=== PATIENT | female | born 1990 | race American Indian/Alaskan Native ===

== ENCOUNTER 2017-09-28 06:28 | Inpatient (IN) | payer MEDICAID ==
[2017-09-28] MEDS ORDERED: PITOCin/NS 20 UNIT/1000ML DRIP 20,000 MILLIUNITS/1,000 ML BAG IV ONE (06:46)
[2017-09-28] MEDS ORDERED: PHENERGAN PO PRN (07:54)
[2017-09-28] MEDS ORDERED: TYLENOL PO PRN (07:54)
[2017-09-28] MEDS ORDERED: ZOFRAN IV PRN (07:54)
[2017-09-28] MEDS ORDERED: LANSINOH TP PRN (07:54)
[2017-09-28] MEDS ORDERED: PITOCin/NS 20 UNIT/1000ML DRIP 20 UNITS/1,000 ML BAG IV PRN (07:54)
[2017-09-28] MEDS ORDERED: METHERGINE IM PRN (07:54)
[2017-09-28] MEDS ORDERED: PHENERGAN PR PRN (07:54)
[2017-09-28] MEDS ORDERED: TUCKS PAD TP PRN (07:54)
[2017-09-28] MEDS ORDERED: HEMABATE IM PRN (07:54)
[2017-09-28] MEDS ORDERED: BENADRYL PO PRN (07:54)
[2017-09-28] MEDS ORDERED: CYTOTEC PR PRN (07:54)
[2017-09-28 07:58] LABS: Basophils # (Auto) 0.1 K/mm3 (0.0-0.1); Basophils % (Auto) 0.6 % (0.0-1.8); Eosinophils # (Auto) 0.1 K/mm3 (0.0-0.4); Eosinophils % (Auto) 0.7 % (0.0-4.3); Lymphocytes # (Auto) 1.5 K/mm3 (1.2-5.4); Lymphocytes % (Auto) 14.7 % (13.4-35.0); Mean Corpuscular HGB Conc 29 % (30-34); Monocytes # (Auto) 0.5 K/mm3 (0.0-0.8); Monocytes % (Auto) 4.6 % (0.0-7.3); Platelet Count 321 K/mm3 (140-440)
[2017-09-28 08:00] LABS: Hematocrit 24.5 % (30.3-42.9); Mean Corpuscular Hemoglobin 18 pg (28-32); Mean Corpuscular Volume 64 fl (79-97); Red Cell Distribution Width 21.1 % (13.2-15.2)
[2017-09-28] MEDS ORDERED: SODIUM CHLORIDE FLUSH SYRINGE 10 ML IV NR (08:00)
--- NOTE | 2017-09-28 08:05 | History and Physical Report ---
History of Present Illness Date of examination: 09/28/17 Date of admission: 09/28/17 06:46 Chief complaint: Labor History of present illness: No care Past History Past Medical History: no pertinent history Past Surgical History: no surgical history [employer] MANAGER History: denies: chlamydia, gonorrhea, hepatitis B, herpes, HIV, syphilis, trichomonas Social history: no significant social history - Obstetrical History : 4 Medications and Allergies Allergies Allergy/AdvReac Type Severity Reaction Status Date / Time No Known Allergies Allergy Unverified 09/28/17 07:02 Home Medications Medication Instructions Recorded Confirmed Last Taken Type No Known Home Medications [No 09/28/17 09/28/17 Unknown History Reported Home Medications] - Vital Signs Vital signs: Vital Signs Pulse Pulse Ox 103 H 98 09/28/17 07:02 09/28/17 07:02 Temp Pulse Resp BP Pulse Ox 97.3 F L 89 24 121/80 100 09/28/17 07:37 09/28/17 08:02 09/28/17 07:37 09/28/17 07:52 09/28/17 08:02 - Physical Exam Breasts: Positive: deferred Lungs: Positive: Normal air movement Abdomen: Positive: normal appearance Genitourinary (Female): Positive: normal external genitalia, normal perenium Vulva: both: normal Uterus: Positive: other (firm) Extremities: Positive: normal Results Result Diagrams: 09/28/17 06:09 Abnormal lab results 09/28/17 Range/Units 06:09 Hgb 7.0 L (10.1-14.3) gm/dl Hct 24.5 L (30.3-42.9) % MCV 64 L (79-97) fl MCH 18 L (28-32) pg MCHC 29 L (30-34) % RDW 21.1 H (13.2-15.2) % Seg Neutrophils % 79.4 H (40.0-70.0) % Seg Neutrophils # 8.3 H (1.8-7.7) K/mm3 All other labs normal. Assessment and Plan - Patient Problems (1) No care in current Current Visit: Yes Status: Acute (2) Anemia Current Visit: Yes Status: Acute Qualifiers: Anemia type: iron deficiency Iron deficiency anemia type: chronic blood loss Qualified Code(s): D50.0 - Iron deficiency anemia secondary to blood loss (chronic) Plan to address problem: Present on arrival (3) Vaginal delivery Current Visit: Yes Status: Acute (4) Single live Current Visit: Yes Status: Acute
--- NOTE | 2017-09-28 08:12 | Procedure Note ---
OB Delivery Note - Delivery Date of Delivery: 09/28/17 Estimated blood loss: 200cc - Vaginal Delivery presentation: vertex Intrapartum events: no care Delivery placenta: spontaneous (intact) Delivery comments: Patient states she had one visit to [facility] in [place] and her THEODORE is today. On my arrival baby on warmer, placenta delivered and in basin, appears intact. Small (B) labial abrasions, no lacerations. hemostasis noted. - Infant A at 1 minute: 8 at 5 minutes: 9 Infant Gender: Female (6#0oz)
[2017-09-28] MEDS: MOTRIN PO SCH ×3 (08:24→23:42)
[2017-09-28 08:44] LABS: Hepatitis C Virus Antibody Non-Reactive (NonReactive)
[2017-09-28 09:16] LABS: Rubella IgG Antibody Immune (Immune)
[2017-09-28 09:18] LABS: Bilirubin,Urine NEG (Negative); Blood,Urine LG (Negative); Mucus,Urine FEW /HPF; Urobilinogen,Urine < 2.0 mg/dL (<2.0)
[2017-09-28 09:20] LABS: Color,Urine Sl. Red (Yellow); RBC,Urine > 182.0 /HPF (0.0-6.0)
[2017-09-28 09:43] LABS: Amphetamine Screen,Urine PRESUMPTIVE NEGATIVE; Benzodiazepines Screen,Urine PRESUMPTIVE NEGATIVE; Cannabinoid Screen,Urine PRESUMPTIVE NEGATIVE; Cocaine Screen,Urine PRESUMPTIVE NEGATIVE; Methadone Screen,Urine PRESUMPTIVE NEGATIVE; Opiate Screen,Urine PRESUMPTIVE NEGATIVE
[2017-09-28] MEDS ORDERED: DULCOLAX PR PRN (10:00)
[2017-09-28] MEDS: FEOSOL PO SCH ×2 (16:42→21:52)
[2017-09-28 19:19] LABS: Hematocrit 20.2 % (30.3-42.9)
[2017-09-28 19:33] LABS: Hemoglobin 5.8 gm/dl (10.1-14.3)
[2017-09-28] MEDS ORDERED: NACL 0.9% 500 ML 500 ML IV SCH (21:20)
[2017-09-28] MEDS ORDERED: NACL 0.9% 500 ML 500 ML IV ONE (21:20)
[2017-09-28] MEDS ORDERED: MILK OF MAGNESIA PO PRN (22:00)
[2017-09-29] MEDS: MOTRIN PO SCH ×2 (06:01→12:00)
--- NOTE | 2017-09-29 06:21 | Progress Note ---
Assessment and Plan - Patient Problems (1) Vaginal delivery Onset Date: ~09/28/17 Current Visit: Yes Status: Acute Plan to address problem: Pt w/o complaint VSS FF below umb Lochia small Perineum intact H&H 11/09. Chronic anemia. Pt denies any s/sx of anemia Pt continues to decline transfusion. Stable s/p vag delivery P: continue pathway. Will write d/c for tomorrow so pt may leave in the AM as requested. LAR for BC Pt states she will f/u with practice in [facility]. Subjective - Subjective Date of service: 09/29/17 (Pt asks for d/c; explained d/c can be written for tomorrow) Principal diagnosis: No Care Patient reports: appetite normal, voiding normally, pain well controlled, ambulating normally : doing well Objective - Vital Signs Latest vital signs: Vital Signs Temp Pulse Resp BP BP Pulse Ox 09/29/17 00:15 98.1 F 97 H 18 106/61 09/28/17 21:10 98.9 F 102 H 18 121/67 09/28/17 17:15 98 F 107 H 18 122/67 09/28/17 08:42 97 H 100 09/28/17 08:37 93 H 128/83 100 09/28/17 08:32 91 H 100 09/28/17 08:27 99 H 99 09/28/17 08:24 20 09/28/17 08:22 94 H 128/83 99 09/28/17 08:17 97 H 100 09/28/17 08:12 95 H 100 09/28/17 08:07 98 H 123/83 100 09/28/17 08:02 89 100 09/28/17 07:57 91 H 100 09/28/17 07:52 84 18 121/80 121/80 100 09/28/17 07:47 91 H 100 09/28/17 07:42 95 H 99 09/28/17 07:37 97.3 F L 94 H 24 125/79 125/79 99 09/28/17 07:32 95 H 100 09/28/17 07:27 93 H 100 09/28/17 07:22 97 H 18 122/77 122/77 100 09/28/17 07:17 112 H 98 09/28/17 07:12 97.3 F L 105 H 18 123/70 98 09/28/17 07:11 107 H 123/70 09/28/17 07:07 104 H 99 09/28/17 07:04 102 H 123/67 09/28/17 07:02 103 H 98 Intake and Output 09/28/17 09/28/17 09/29/17 14:59 22:59 06:59 Intake Total 120 680 120 Output Total 200 1300 Balance -80 -620 120 Intake: Oral 120 560 Intake, Free Water 120 120 Output: Urine 200 1300 Void 200 1300 Other: Total, Intake Amount 120 240 Total, Output Amount 200 900 # Voids Void 2 Weight 170 lb Estimated Blood Loss 200 Patient Weight 09/29/17 06:59 Weight 170 lb - Exam Breasts: Present: normal Cardiovascular: Present: Regular rate Lungs: Present: Normal air movement Abdomen: Present: normal appearance, soft, normal bowel sounds Uterus: Present: normal, firm, fundal height below umbilicus Extremities: Present: normal Deep Tendon Reflex Grade: Normal +2 Incision: Present: normal, dry, intact - Labs Labs: Abnormal lab results 09/28/17 09/28/17 09/28/17 Range/Units 06:09 06:09 09:00 Hgb 7.0 L (10.1-14.3) gm/dl Hct 24.5 L (30.3-42.9) % MCV 64 L (79-97) fl MCH 18 L (28-32) pg MCHC 29 L (30-34) % RDW 21.1 H (13.2-15.2) % Seg Neutrophils % 79.4 H (40.0-70.0) % Seg Neutrophils # 8.3 H (1.8-7.7) K/mm3 Urine WBC (Auto) 7.0 H (0.0-6.0) /HPF Crossmatch See Detail 09/28/17 Range/Units 19:10 Hgb 5.8 L* (10.1-14.3) gm/dl Hct 20.2 L (30.3-42.9) % MCV (79-97) fl MCH (28-32) pg MCHC (30-34) % RDW (13.2-15.2) % Seg Neutrophils % (40.0-70.0) % Seg Neutrophils # (1.8-7.7) K/mm3 Urine WBC (Auto) (0.0-6.0) /HPF Crossmatch
--- NOTE | 2017-09-29 06:26 | Discharge Summary ---
Providers - Providers Date of Admission: 09/28/17 06:46 Date of discharge: 09/29/17 (pt request d/c when possible) Attending physician: LILIA QUINTANILLA 09/28/17 Consult to Case Management [CONS] Routine Services Needed at Discharge: Assessment Services Manager Additional Physician Instructions: No care Primary care physician: LILIA QUINTANILLA Hospitalization Reason for admission: active labor (No Care) Delivery: Episiotomy: none Laceration: none Incision: normal Other procedures: none complications: none Discharge diagnosis: IUP at term delivered [place] baby: female Hospital course: uncomplicated vaginal delivery Chronic anemia - declined blood transfusion Pt w/o complaints VSS FF below umb Lochia small Perineum intact. Doing well P: may go when baby is 48 hours old pt will f/u with OBGYN closer to her home. LARC for BC Condition at discharge: Good Disposition: DC-01 TO HOME OR SELFCARE - Discharge Diagnoses (1) Vaginal delivery Status: Acute Comment: [facility]are in 4-6 weeks Plan - Provider Discharge Summary Activity: routine, no sex for 6 weeks, no heavy lifting 4 weeks, no strenuous exercise Diet: routine Instructions: routine Additional instructions: [] Smoking cessation referral if applicable(refer to patient education folder for contact #) [] Refer to [facility]'s [facility] Booklet Call your doctor immediately for: * Fever > 100.5 * Heavy vaginal bleeding ( >1 pad per hour) * Severe persistent headache * Shortness of breath * Reddened, hot, painful area to leg or breast * Drainage or odor from incision. * Keep incision clean and dry at all times and follow doctor's instructions regarding bathing/showering - Follow up plan Follow up: LILIA QUINTANILLA MD [Primary Care Provider] - 6 Weeks (Please call the provider you have chosen for care in 4-6 weeks. Motrin for pain and cramping.)
[2017-09-29] MEDS ORDERED: BOOSTRIX IM ONE (08:00)
[2017-09-29] MEDS: FEOSOL PO SCH ×2 (10:27→16:17)
[2017-09-30] MEDS: MOTRIN PO SCH
[2017-09-30] MEDS: FEOSOL PO SCH ×2 (00:37→08:21)
[2017-09-30 11:17] VITALS: BP 125/77
== END 2017-09-30 11:30 | disposition home or self-care (01) | DRG 775 ==
LOC: TRG 06:28 → LD 06:46 → OB 10:16
PROVIDERS: ADMIT Obstetrics & Gynecology; ATTEND Obstetrics & Gynecology
PROC: 10E0XZZ Delivery of Products of Conception, External Approach (ICD-10-PCS; principal; 2017-09-28)
DX: O99.02 Anemia complicating childbirth (principal); O71.89 Other specified obstetric trauma; Z37.0 Single live birth; Z3A.40 40 weeks gestation of pregnancy; D64.9 Anemia, unspecified
CPT/HCPCS: 36415; 80307; 81001; 85014; 85018; 85025; 85660; 86592; 86706; 86762; 86803; 86850; 86900; 86901; 86920; 87806; 88307; 99211; G0463; J2590